=== PATIENT | female | born 1995 | race Caucasian/White ===

== ENCOUNTER 2023-11-04 08:28 | Emergency (ER) | payer MEDICAID ==
[~2023-11-04 08:28] MED LIST: ETHI1TAB26 PO
[2023-11-04 11:54] VITALS: BP 111/77; PULSE 69; RESP 16; O2SAT 98
== END 2023-11-04 11:54 | disposition home or self-care (01) ==
LOC: ER 08:28 → EDUNIT# 08:28 → ER 11:54
DX: Z53.21 Procedure and treatment not carried out due to patient leaving prior to being seen by health care provider (principal)